=== PATIENT | male | born 1990 | race African-American/Black ===

== ENCOUNTER 2020-02-03 19:29 | Emergency (ER) | payer SELFPAY ==
[~2020-02-03] VITALS: Ht 180.3 cm; Wt 97.5 kg
[2020-02-03 19:35] VITALS: BP 124/74
--- NOTE | 2020-02-03 19:38 | NUR ---
Nurse Note: Pt brought in by ANTONY c/o blood in urine and burning while urination since AM. Medical clearance.
[2020-02-03] MEDS ORDERED: Phenazopyridine 200mg tab ORAL ONE (19:45)
--- NOTE | 2020-02-03 20:25 | Emergency Room Report ---
History of Present Illness General Chief Complaint: Medical Clearance Source: Patient Present Illness HPI 29-year-old male presents to the emergency department complaining of 4-10 severity dysuria with hematuria since this morning. Patient denies urinary frequency or urgency. He denies penile discharge. He denies testicular pain or tenderness. He denies abdominal pain or tenderness. He denies rashes or penile lesions. Patient is here for medical clearance for incarceration. Patient denies chest pain, shortness of breath, cough, fevers or chills. Patient has no other complaints at this time. He denies trauma. 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: No Patient History Past Medical History: see triage record Past Surgical History: none Pertinent Family History: none Reviewed Nursing Documentation: PMH: Agreed; PSxH: Agreed Review of Systems All Other Systems: negative except mentioned in HPI Physical Exam Vital Signs Date Time Temp Pulse Resp B/P (MAP) Pulse Ox O2 Delivery O2 Flow Rate FiO2 02/03/20 19:31 98.4 102 16 124/74 (91) 98 Room Air Sp02 EP Interpretation: reviewed, normal General Appearance: no apparent distress, alert, GCS 15, non-toxic Head: normocephalic, atraumatic Eyes: bilateral eye normal inspection, bilateral eye PERRL ENT: hearing grossly normal, normal voice Neck: full range of motion Respiratory: chest non-tender, lungs clear, normal breath sounds, no wheezing, speaking full sentences Cardiovascular #1: regular rate, rhythm, normal capillary refill Cardiovascular #2: 2+ radial (R), 2+ radial (L) Gastrointestinal: normal bowel sounds, non tender, soft, no guarding Rectal: deferred Genitourinary: normal inspection, no CVA tenderness Musculoskeletal: normal range of motion, gait/station normal, non-tender Neurologic: alert, motor strength/tone normal, oriented x3, sensory intact, responsive, speech normal Psychiatric: judgement/insight normal Skin: no rash, normal color Medical Decision Making PA Attestation Dr. Narvaez is my supervising Physician whom patient management has been discussed with. Diagnostic Impression: Primary Impression: Dysuria Additional Impression: Medical clearance for incarceration ER Course 29-year-old male presents to the emergency department complaining of 4-10 severity dysuria with hematuria since this morning. Patient denies urinary freq uency or urgency. He denies penile discharge. He denies testicular pain or tenderness. He denies abdominal pain or tenderness. He denies rashes or penile lesions. Patient is here for medical clearance for incarceration. Patient denies chest pain, shortness of breath, cough, fevers or chills. Patient has no other complaints at this time. He denies trauma. Ddx considered but are not limited to Head Trauma, MS, ACS, SI/HI, URI, SAH, Fractures, Dislocations, Tazer barbs, Abrasions, UTI, STI, urethritis, renal calculi just to name a few Vital signs: are WNL, pt. is afebrile H&PE are most consistent with: normal limited physical examination. ORDERS: -UA: ED INTERVENTIONS: -PYridium PO DISCHARGE: At this time pt. is stable for d/c to law enforcement. Will provide printed patient care instructions, and any necessary prescriptions. Care plan and follow up instructions have been discussed with the patient prior to discharge. Labs Test 02/03/20 19:30 Urine Color [place] Urine Appearance Clear Urine pH 5 (4.5-8.0) Urine Specific [place] 1.020 (1.005-1.035) Urine Protein Negative (NEGATIVE) Urine Glucose (UA) Negative (NEGATIVE) Urine Ketones Negative (NEGATIVE) Urine Blood Negative (NEGATIVE) Urine Nitrite Negative (NEGATIVE) Urine Bilirubin Negative (NEGATIVE) Urine Ictotest Negative (NEGATIVE) Urine Urobilinogen Normal MG/DL (0.0-1.0) Urine Leukocyte Esterase Negative (NEGATIVE) Last Vital Signs Date Time Temp Pulse Resp B/P (MAP) Pulse Ox O2 Delivery O2 Flow Rate FiO2 02/03/20 19:35 102 16 Room Air 02/03/20 19:35 98.4 124/74 98 Status: improved Disposition: HOME, SELF-CARE Condition: Stable Referrals: NOT CHOSEN RENETTA/,REFERRING (PCP) Samira Scott Comp. [facility] + [facility] Departure Forms: Mcfp Clearance Patient Instructions: Dysuria Additional Instructions: Take medications as directed. Follow up with a Primary Care Provider in 3-5 days, even if your symptoms have resolved. --Please review list of primary care clinics, if you do not already have a primary care provider Return sooner to ED if new symptoms occur, or current symptoms become worse. - Please note that this Emergency Department Report was dictated using [employer] content specialist technology software, occasionally this can lead to erroneous entry secondary to interpretation by the dictation equipment. Seble Scott Feb 03, 2020 20:25
--- NOTE | 2020-02-03 20:31 | NUR ---
Nurse Note: All orders compelted per ER PA orders; urine sent and meds given. Awaiting urine results. All safety measures met; LASD at pt side; will continue to monitor.
[2020-02-03 20:35] LABS: APPEARANCE,URINE CLEAR; BILIRUBIN, URINE NEGATIVE (NEGATIVE); COLOR,URINE AMBER; GLUCOSE, URINE (UA) NEGATIVE (NEGATIVE); KETONES,URINE NEGATIVE (NEGATIVE); LEUKOCYTE ESTERASE ,URINE NEGATIVE (NEGATIVE); NITRITE,URINE NEGATIVE (NEGATIVE); PH,URINE 5 (4.5-8.0); PROTEIN,URINE NEGATIVE (NEGATIVE); UROBILINOGEN,URINE NORMAL MG/DL (0.0-1.0)
[2020-02-03] MEDS ORDERED: PHENAZOPYRIDIN100 MG ORAL (20:40)
[2020-02-03 21:00] VITALS: BP 132/70
--- NOTE | 2020-02-03 21:00 | NUR ---
ED Nurse Note: Pt cleared by health care Provider for discharge. DC instructions/prescription was given and explained to GIOVANY peck and verbalized understanding of teachings; instructed pt to follow up with primary care physcian within one week. All medical deviecs such as ID band removed. Pt is AAO x4, ambulatory and left with all personal belongings.
== END 2020-02-03 21:00 ==
LOC: EMR 20:05
DX: R30.0 Dysuria (principal); R31.9 Hematuria, unspecified
CPT/HCPCS: 81003; 99282